=== PATIENT | male | born 1965 | race Caucasian/White ===

== ENCOUNTER 2018-04-03 11:43 | Observation (INO) ==
[2018-04-03] MEDS ORDERED: Diphtheria/Tetanus/Pertussis Vaccine Inj 0.5 ML Syringe IM ONE (11:47)
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
[2018-04-03 12:06] LABS: Baso % (Auto) 0.5 % (0.0-2.0); Eos % (Auto) 0.4 % (0.0-4.0); Hematocrit 39.6 % (39.0-51.0); Lymph % (Auto) 16.1 % (9.0-44.0); Mean Corpuscular HGB Conc 35.4 % (32.0-36.0); Mean Corpuscular Hemoglobin 32.7 pg (27.0-34.0); Mean Corpuscular Volume 92.2 fL (80.0-100.0); Mean Platelet Volume 9.7 fL (7.0-11.0); Mono # (Auto) 0.4 th/mm3 (0.0-0.9); Mono % (Auto) 5.7 % (0.0-8.0); Neut % (Auto) 77.3 % (16.0-70.0); Platelet Count 126 th/mm3 (150-450); Red Blood Count 4.29 mil/mm3 (4.50-5.90); Red Cell Distribution Width 13.1 % (11.6-17.2); White Blood Count 6.5 th/mm3 (4.0-11.0)
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
[2018-04-03 12:16] LABS: Activated Partial Thrombo Time 22.4 sec (24.3-30.1); INR 1.1 Ratio; Prothrombin Time 11.3 sec (9.8-11.6)
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
[2018-04-03] MEDS ORDERED: Sod Chloride 0.9% Inj 1,000 ML IV.CONT SCH (13:00)
[2018-04-03] MEDS ORDERED: Bisacodyl 10 MG Supp RECTAL PRN (14:07)
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
--- NOTE | 2018-04-03 16:27 | US ---
EXAM DATE: 04/03/2018 12:00 AM EDT AGE/SEX: 89 years / Male INDICATIONS: Syncope. CLINICAL DATA: This is the patient's initial encounter. Patient reports that signs and symptoms have been present for 1 day and indicates a pain score of 0/10. MEDICAL/SURGICAL HISTORY: . Syncope. None. COMPARISON: No prior exams available for comparison. VELOCITY PARAMETERS: ICA/CCA Ratio: Right 0.9 , Left 0.8 ICA: Right 100.0 cm/sec, Left 102.2 cm/sec CCA: Right 108.1 cm/sec, Left 130.2 cm/sec ECA: Right 97.0 cm/sec, Left 102.2 cm/sec Vertebral: Right 48.2 cm/sec antegrade, Left 72.4 cm/sec antegrade FINDINGS: Right Carotid: No significant plaque is visualized.The waveforms are within normal limits. Left Carotid: No significant plaque is visualized. The waveforms are within normal limits. Other: None. CONCLUSION: 1. Right Internal Carotid Artery: Minimal plaque without hemodynamically significant stenosis. 2. Left Internal Carotid Artery: Minimal plaque without hemodynamically significant stenosis. Electronically signed by: Nik Jean Baptiste MD 04/03/2018 4:26 PM EDT
[2018-04-03] MEDS: Acetaminophen 325 MG Tablet PO PRN (20:16)
[2018-04-03] MEDS: Senna/Docusate Sodium 8.6/50 MG Tablet PO SCH (20:17)
[2018-04-03 21:51] LABS: Bilirubin,Urine Negative (Negative); Clarity,Urine Clear (Clear); Color,Urine Yellow (Yellw/Straw); Glucose,Urine (UA) Negative (Negative); Leukocyte Esterase,Urine Negative (Negative); Mucus,Urine Few /lpf (Occasional); Nitrite,Urine Negative (Negative); Specific Gravity,Urine 1.039 (1.002-1.035)
[2018-04-04 08:02] LABS: Albumin 3.7 g/dL (3.4-5.0); Anion Gap 5 meq/L (5-15); Aspartate Aminotransferase 16 U/L (15-37); Baso % (Auto) 0.5 % (0.0-2.0); Blood Urea Nitrogen 18 mg/dL (7-18); Calcium 8.2 mg/dL (8.5-10.1); Carbon Dioxide 26.9 meq/L (21.0-32.0); Chloride 110 meq/L (98-107); Eos # (Auto) 0.1 th/mm3 (0.0-0.4); Glomerular Filtration Rate 66 mL/min (>89); Glucose,Random 90 mg/dL (74-106); Hematocrit 39.6 % (39.0-51.0); Hemoglobin 13.4 gm/dL (13.0-17.0); Lymph # (Auto) 0.9 th/mm3 (1.0-4.8); Magnesium 2.1 mg/dL (1.5-2.5); Mean Corpuscular HGB Conc 33.9 % (32.0-36.0); Mean Corpuscular Volume 94.2 fL (80.0-100.0); Mean Platelet Volume 10.6 fL (7.0-11.0); Mono # (Auto) 0.4 th/mm3 (0.0-0.9); Mono % (Auto) 8.5 % (0.0-8.0); Neut # (Auto) 3.8 th/mm3 (1.8-7.7); Platelet Count 123 th/mm3 (150-450); Potassium 4.4 meq/L (3.5-5.1); Red Cell Distribution Width 13.7 % (11.6-17.2); Sodium 142 meq/L (136-145); White Blood Count 5.2 th/mm3 (4.0-11.0)
[2018-04-04 08:03] LABS: Alanine Aminotransferase 20 U/L (12-78)
[2018-04-04 08:05] LABS: Alkaline Phosphatase 63 U/L (45-117); Total Protein 6.3 g/dL (6.4-8.2)
[2018-04-04] MEDS: Acetaminophen 325 MG Tablet PO PRN (08:17)
[2018-04-04] MEDS: Senna/Docusate Sodium 8.6/50 MG Tablet PO SCH ×2 (08:18→21:59)
--- NOTE | 2018-04-04 15:19 | ECHRPT ---
Indication: SYNCOPE CONCLUSIONS Normal left ventricular size. Wall thickness is normal. There is normal normal left ventricular systolic size and function and the ejection fraction is in t he range of 60-65%. Trace mitral valve regurgitation. There is trace tricuspid valve regurgitation. The estimated pulmonary arterial pressure is 36.8 mmHg. Trivial pulmonary valve regurgitation. BP: / HR: Rhythm: Sinus MEASUREMENTS (Male / Female) Normal Values Technical Quality:Fair 2D ECHO LV Diastolic Diameter PLAX 5.6 cm 4.2 - 5.9 / 3.9 - 5.3 cm LV Systolic Diameter PLAX 3.7 cm IVS Diastolic Thickness 0.9 cm 0.6 - 1.0 / 0.6 - 0.9 cm LVPW Diastolic Thickness 0.9 cm 0.6 - 1.0 / 0.6 - 0.9 cm LV Relative Wall Thickness 0.3 RV Internal Dim ED PLAX 2.6 cm LVOT Diameter 2.1 cm Aortic Root Diameter 3.5 cm LA Systolic Diameter LX 3.6 cm 3.0 - 4.0 / 2.7 - 3.8 cm M-MODE AV Cusp Separation MM 2.3 cm DOPPLER AV Peak Velocity 136.0 cm/s AV Peak Gradient 7.4 mmHg AV Mean Gradient 5.0 mmHg AV Velocity Time Integral 27.0 cm LVOT Peak Velocity 104.0 cm/s LVOT Peak Gradient 4.3 mmHg LVOT Velocity Time Integral 18.3 cm AV Area Cont Eq vti 2.3 cm AV Area Cont Eq pk 2.6 cm Mitral E Point Velocity 86.4 cm/s Mitral A Point Velocity 71.1 cm/s Mitral E to A Ratio 1.2 LV E' Lateral Velocity 8.8 cm/s Mitral E to LV E' Lateral Ratio 9.9 LV E' Septal Velocity 10.2 cm/s Mitral E to LV E' Septal Ratio 8.5 TV Peak Velocity 257.0 cm/s TR Peak Velocity 259.0 cm/s TR Peak Gradient 26.8 mmHg Right Atrial Pressure 10.0 mmHg Pulmonary Artery Systolic Pressu 36.8 mmHg Right Ventricular Systolic Press 36.8 mmHg PV Peak Velocity 55.6 cm/s PV Peak Gradient 1.2 mmHg FINDINGS LEFT VENTRICLE Normal left ventricular size. Wall thickness is normal. The left ventricular systolic function is normal with an estimated ejection fraction in the range of 60-65%. RIGHT VENTRICLE Normal right ventricular size and systolic function. LEFT ATRIUM The left atrial size is normal. RIGHT ATRIUM The right atrial size is normal. ATRIAL SEPTUM The interatrial septum not well visualized. AORTA The aortic root and proximal ascending aorta are not well visualized. MITRAL VALVE Trace mitral valve regurgitation. AORTIC VALVE Trileaflet aortic valve. TRICUSPID VALVE There is trace tricuspid valve regurgitation. The estimated pulmonary arterial pressure is 36.8 mmHg. PULMONARY VALVE Trivial pulmonary valve regurgitation. VESSELS The inferior vena cava is normal in size. PERICARDIUM No pericardial effusion. Edy Rogers MD, FACC (Electronically Signed) Final Date:04 April 2018 15:17
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
--- NOTE | 2018-04-04 16:50 | ECG ---
Date Performed: 04/03/2018 Time Performed: 15:02:09 PTAGE: 89 years EKG: Sinus rhythm POSSIBLE RIGHT VENTRICULAR CONDUCTION DELAY BORDERLINE ECG NO PREVIOUS TRACING DOCTOR: Leonela Joe Interpretating Date/Time 04/04/2018 16:43:14
[2018-04-04] MEDS ORDERED: Gadobutrol PF 10 MMOL/10 ML Vial (for RAD) IV.SIG ONE (17:07)
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
[2018-04-04 21:08] VITALS: RESP 18
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
[2018-04-05 04:55] VITALS: TEMP 98.5
[2018-04-05 07:50] VITALS: BP 119/77; PULSE 57; O2SAT 98
[2018-04-05] MEDS: Senna/Docusate Sodium 8.6/50 MG Tablet PO SCH (08:12)
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
== END 2018-04-05 13:09 | disposition home or self-care (01) ==
LOC: NEPI 11:43 → NEDA 11:43 → EDBD 15:15 → NEPGCP 16:47
PROVIDERS: ADMIT Hospitalist; ATTEND Hospitalist